=== PATIENT | male | born 1975 | race Caucasian/White ===

== ENCOUNTER → 2017-08-02 | Outpatient (CLI) | payer BC ==
[~2017-08-02] MED LIST: AMOXICILLIN500 M1 PO; FLAGYL250 M1 PO; NO MEDICATIONS
--- NOTE | ~2017-08-02 | US5 ---
[facility] A Service of [facility] / [facility] RADIOLOGY TEXT RESULTS PATIENT: JEREMY CUENCA LOCATION: [facility] : 73 UNIT #: [id number] AGE: [address]: Ethan Collado MD SEX: M ORDER DR: [id number] [address] [id number] O MR#: [id number] Acc #: [id number] NAME: JEREMY CUENCA : 1975 SEX: M STUDY DATE/TIME: 08/02/2017 9:14 UNIT: [facility] ROOM: STUDY DESCRIPTION: US Abdominal Complete Attending Physician: Ethan Collado M.D. Referring Physician: Ethan Collado M.D. Ordering Physician: Ethan Collado M.D. Primary Care Physician: Ethan Collado M.D. MEDICAL IMAGING REPORT This report is preliminary unless electronic signature is present. EXAM Complete abdominal ultrasound 08/02/2017 HISTORY Abnormal liver function tests. COMPARISON None. FINDINGS The pancreas is largely obscured by bowel gas. The liver demonstrates a diffusely coarsened echotexture with diminished acoustic transmission. No focal liver lesions are identified. Liver size measures within normal limits, 16.6 cm in the sagittal plane. Main portal vein is patent. Common bile duct caliber is normal, 3 mm and no intrahepatic biliary ductal dilation is seen. The gallbladder is free of shadowing stone, sludge, wall thickening or pericholecystic fluid. The right kidney measures 13.1 cm in length without focal cortical lesion, shadowing stone or hydronephrosis. No ascites is seen. Intrahepatic IVC is poorly visualized but appears unremarkable. IMPRESSION 1. Echogenic liver suggesting features of hepatic steatosis. No focal liver lesion is seen. 2. Normal appearance of the gallbladder. No biliary dilation. 3. Pancreas is obscured by bowel gas. Dictated by... Elsa Aguilar M.D. [facility] A Service of [facility] / [facility] RADIOLOGY TEXT RESULTS PATIENT: JEREMY CUENCA LOCATION: [facility] : 73 UNIT #: [id number] AGE: [address]: Ethan Collado MD SEX: M ORDER DR: THIS IS AN ELECTRONICALLY VERIFIED REPORT Elsa Aguilar M.D. at 08/09/2017 8:43 AM Eliza TD: 08/02/2017 13:23 JOB #: [id number] MEDICAL IMAGING REPORT Page 1 of 1
[2017-08-04 08:33] LABS: HA AB IGM (HEPPAN) Nonreactive (()); HB CORE AB IGM (HEPPAN) Nonreactive (Nonreactive); HB S AG (HEPPAN) Nonreactive (Nonreactive); HEP C AB (HEPPAN) Nonreactive (Nonreactive); HEP C AB SIGNAL TO CUTOFF 0.06 ratio (<1.00)
== END | disposition home or self-care (01) ==
LOC: SGUS 09:09 → SLAB 09:09 → SGUS 09:30
PROVIDERS: Family Medicine
DX: R79.89 Other specified abnormal findings of blood chemistry (principal); R93.2 Abnormal findings on diagnostic imaging of liver and biliary tract
CPT/HCPCS: 36415; 76700; 80074

== ENCOUNTER → 2017-08-22 | Outpatient (CLI) | payer MEDICAID ==
[2017-08-22 16:36] LABS: ALBUMIN SERUM 4.4 g/dL (3.5-5.0); BILIRUBIN,TOTAL 0.3 mg/dL (0.2-2.0); BUN/CREATININE RATIO 14.44; CALCIUM SERUM 9.6 mg/dL (8.4-10.2); CREATININE SERUM 0.9 mg/dL (0.6-1.4); POTASSIUM 4.3 mmol/L (3.5-5.1); PROTEIN TOTAL SERUM 7.3 g/dL (6.0-8.3)
== END | disposition home or self-care (01) ==
LOC: CAMB 14:15
PROVIDERS: Surgery
DX: Z01.810 Encounter for preprocedural cardiovascular examination (principal)
CPT/HCPCS: 36415; 80053